=== PATIENT | female | born 1965 | race Caucasian/White ===

== ENCOUNTER 2020-08-01 11:15 | Outpatient (CLI) | payer OTHER, SELFPAY ==
--- NOTE | 2020-08-01 11:34 | XRR_ITS ---
PROCEDURE INFORMATION: Exam: XR Left Knee Exam date and time: 08/01/2020 11:53 AM Age: 54 years old Clinical indication: Pain; Knee; Left; Patient HX: Stepped onto step and heard a loud pop, hurts to put weight on it; Additional info: Left knee pain TECHNIQUE: Imaging protocol: XR Left knee. Views: 1 or 2 views. COMPARISON: No relevant prior studies available. FINDINGS: Bones/joints: No fracture or other acute abnormalities are seen in the left knee. Chronic degenerative changes are present with osteophytes on the patella, femoral condyles and tibial plateau. There is joint space narrowing especially of the femoral patellar joint. Soft tissues: Normal. XR/XR knee LT 1-2V [id number] IMPRESSION: 1. No acute abnormality. 2. 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
== END 2020-08-01 11:16 | disposition home or self-care (01) ==
LOC: RAD 11:20
PROVIDERS: PCP Nurse Practitioner Family; Visit Provider Nurse Practitioner Family
DX: M25.562 Pain in left knee (principal); M17.12 Unilateral primary osteoarthritis, left knee
CPT/HCPCS: 73560

== ENCOUNTER 2021-06-16 12:51 | Outpatient (CLI) | payer OTHER, SELFPAY ==
--- NOTE | 2021-06-16 13:13 | XR_ITS ---
WS: [id number] XR foot RT min 3V* [id number] REASON FOR EXAM: PAIN IN R FOOT FINDINGS: No fracture or focal bone lesion. Mild to moderate joint space narrowing with subchondral sclerosis and small marginal osteophytes in t he PIP and DIP joints of the second through the fifth toes. Nonweightbearing subluxation at the PIP j oints. Similar arthropathy with mild to moderate valgus deformity in the first metatarsophalangeal joint. Mild to moderate narrowing with subchondral sclerosis and lateral subluxation at the fifth tarsometat arsal joint. Mild narrowing with subchondral sclerosis and small marginal osteophytes in the talonavi cular joint. Hindfoot joints are intact and well preserved. Small enthesophytes from the anterior plantar and post erior Achilles insertions. Dystrophic calcification in the fat anterior to the Achilles tendon. Moder ately elongated trigonal process of the talus. XR/XR foot RT min 3V* [id number] IMPRESSION: Abnormalities of the right foot as above.
== END 2021-06-16 12:52 | disposition home or self-care (01) ==
LOC: RAD 12:54
PROVIDERS: PCP Nurse Practitioner Family; Visit Provider Nurse Practitioner Family
DX: M21.071 Valgus deformity, not elsewhere classified, right ankle (principal); M25.774 Osteophyte, right foot
CPT/HCPCS: 73630

== ENCOUNTER 2021-08-06 06:56 | Day surgery (SDC) | payer OTHER, SELFPAY ==
[2021-08-04 12:01] VITALS: BMI 46.5
[2021-08-06 07:17] VITALS: BP 154/103; PULSE 75; RESP 18; TEMP 36.1; O2SAT 98
[2021-08-06] MEDS: sodium chloride 0.9% 1,000 ML 30 ML IV (07:33)
--- NOTE | 2021-08-06 07:49 | P.ANESASSM_ITS ---
Pre-Anesthetic Assessment Height/Weight: Height 1.65 m Weight 127.006 kg Temp Pulse Resp BP Pulse Ox 97.0 F L 75 18 154/103 98 08/06/21 07:17 08/06/21 07:17 08/06/21 07:17 08/06/21 07:17 08/06/21 07:17 Preop Diagnosis: upper gi symptoms Operation Date: 08/06/21 08:30 Proposed Procedures p EGD 83214,R10.9(Not Applicable) - Edgar Sahni MD Familial anesthetic complications: None Was Beta Sana taken within 24 hours: N/A Was Clonidine taken within 24 hours: N/A Last intake: Intake Last Liquid Date 08/05/21 Last Liquid Time 21:00 Last Solid Date 08/05/21 Last Solid Time 18:00 Social No alcohol and No tobacco Exam alert, oriented x 3, clear to auscultation bilaterally and regular rate & rhythm Airway Submandibular: within normal limits Cervical ROM: Other (Normal extension/flexion some discomfort w/ flexion ) Mallampati: Class II Dentition: chipped Pulmonary None reported CV/HEM None reported METS > 4 None reported Hepatic None reported GI Gastroesophageal Reflux Disease Metabolic Morbid Obesity and Thyroid [place] [facility] [place] Osteoarthritis/DJD Neuropsych Depression Anesthetic Plan ASA status: 3 Anesthesia: Anesthesia Evaluation, General and MAC Other: I discussed with the patient risks, goals, and benefits of MAC and general anesthesia. We discussed spectrum of MAC anesthesia including conversion to general as well as possibility of recall of intraoperative stimuli including discomfort/pain. Patient agrees to proceed with MAC. Risk of > 500 ml blood loss (7ml/kg in children): No Medications/Allergies Home Medications Medication Instructions Recorded Confirmed Last Taken Type acyclovir 400 mg tablet 400 mg PO PRN PRN 07/03/21 08/04/21 08/05/21 History conjugated estrogens 1.25 mg 1.25 mg PO DAILY 07/03/21 08/04/21 08/06/21 History tablet (Premarin) fluoxetine 40 mg capsule 40 mg PO DAILY 07/03/21 08/04/21 08/05/21 History hydroxyzine HCl 25 mg tablet 25 mg PO BID PRN 07/03/21 08/04/21 08/05/21 History levothyroxine 112 mcg tablet 224 mcg PO DAILY 07/03/21 08/04/21 08/06/21 History rabeprazole 20 mg tablet,delayed 20 mg PO BEDTIME 07/03/21 08/04/21 08/05/21 History release ropinirole 1 mg tablet 1 mg PO BEDTIME 07/03/21 08/04/21 08/05/21 History simvastatin 20 mg tablet 20 mg PO BEDTIME 07/03/21 08/04/21 08/05/21 History Allergies Allergy/AdvReac Type Severity Reaction Status Date / Time iodine Allergy ADR-Blurry Verified 08/04/21 11:58 Vision Current Medications Generic Name Dose Route Start Last Admin Trade Name Freq PRN Reason Stop Dose Admin Sodium Chloride 1,000 mls @ 30 mls/hr 08/06/21 07:00 08/06/21 07:33 Sodium Chloride 0.9% IV 08/07/21 06:59 30 mls/hr .Q24H ROMY Administration PFSH Anesthesia Medical History Dyslipidemia Gastroparesis GERD (gastroesophageal reflux disease) Hypothyroidism Surgical History H/O esophagogastroduodenoscopy H/O reduction mammoplasty History of cholecystectomy History of tonsillectomy Status post colonoscopy Family History Other Cancer Social History Smoking and tobacco status: never smoked Data Anesthesia Cardiac Studies: No Data to Display
--- NOTE | 2021-08-06 08:29 | W.PM.OPSFHP ---
Same Day Surgery H&P Indication for Procedure/HPI DATE OF PROCEDURE: August 06, 2021 CHIEF COMPLAINT/INDICATIONFOR SURGICAL PROCEDURE: egd PREOP DIAGNOSIS: upper gi symptoms PLANNED PROCEDURE: Operation Date: 08/06/21 08:30 Proposed Procedures p EGD 39266,R10.9(Not Applicable) - Edgar Sahni MD Medications/Allergies* Home Medications Medication Instructions Recorded Confirmed Type acyclovir 400 mg tablet 400 mg PO PRN PRN 07/03/21 08/04/21 History conjugated estrogens 1.25 mg 1.25 mg PO DAILY 07/03/21 08/04/21 History tablet (Premarin) fluoxetine 40 mg capsule 40 mg PO DAILY 07/03/21 08/04/21 History hydroxyzine HCl 25 mg tablet 25 mg PO BID PRN 07/03/21 08/04/21 History levothyroxine 112 mcg tablet 224 mcg PO DAILY 07/03/21 08/04/21 History rabeprazole 20 mg tablet,delayed 20 mg PO BEDTIME 07/03/21 08/04/21 History release ropinirole 1 mg tablet 1 mg PO BEDTIME 07/03/21 08/04/21 History simvastatin 20 mg tablet 20 mg PO BEDTIME 07/03/21 08/04/21 History Allergies/Adverse Reactions Allergy/AdvReac Type Severity Reaction Status Date / Time iodine Allergy ADR-Blurry Verified 08/04/21 11:58 Vision Current Medications: Generic Name Dose Route Start Last Admin Trade Name Freq PRN Reason Stop Dose Admin Sodium Chloride 1,000 mls @ 30 mls/hr 08/06/21 07:00 08/06/21 07:33 Sodium Chloride 0.9% IV 08/07/21 06:59 30 mls/hr .Q24H ROMY Administration Pertinent History/Comorbid Conditions* Medical History (Updated 07/29/21 @ 11:52 by Edgar Sahni MD) Dyslipidemia Gastroparesis GERD (gastroesophageal reflux disease) Hypothyroidism Surgical History (Updated 07/29/21 @ 11:52 by Edgar Sahni MD) H/O esophagogastroduodenoscopy H/O reduction mammoplasty History of cholecystectomy History of tonsillectomy Status post colonoscopy Family History (Updated 07/29/21 @ 11:48 by Lacey Valencia MA) Cancer Social History Smoking and tobacco status: never smoked Pertinent Exam Findings alert, oriented x 3 and regular rate & rhythm Recommendations Surgery/Procedure today Coding Level of Care Code Acute Travel Registered Nurse Nicu for Daphney Rodriguez
[2021-08-06 08:58] VITALS: BP 143/86; PULSE 70; RESP 16; TEMP 36.3; O2SAT 95
--- NOTE | 2021-08-06 11:26 | ANE.PACU2 ---
Inpatient post-anesthesia follow up: Airway intact: Yes Vital signs: Temperature 97.4 F Pulse Rate 70 Respiratory Rate 16 Blood Pressure 143/86 Pulse Oximetry 95 Oxygen Delivery Me thod Room Air Oxygen Flow Rate Fraction of Inspir ed Oxygen Hydration adequate: Yes Nausea and vomiting: No Pain level: 1 Mental status: Baseline
== END 2021-08-06 09:20 | disposition home or self-care (01) ==
PROVIDERS: PCP Nurse Practitioner Family; Visit Provider Surgery
PROC: 0DJ08ZZ Inspection of Upper Intestinal Tract, Via Natural or Artificial Opening Endoscopic (ICD-10-PCS; CPT 43235; principal; 2021-08-06 08:30)
DX: R10.9 Unspecified abdominal pain (principal); E78.5 Hyperlipidemia, unspecified; K21.9 Gastro-esophageal reflux disease without esophagitis; E03.9 Hypothyroidism, unspecified; K29.70 Gastritis, unspecified, without bleeding; E66.01 Morbid (severe) obesity due to excess calories; Z68.42 Body mass index [BMI] 45.0-49.9, adult
CPT/HCPCS: 43239; 88305; J2704; J7030